=== PATIENT | male | born 1990 | race Caucasian/White ===

== ENCOUNTER 2019-11-01 15:22 | Emergency (ER) | payer OTHER ==
[~2019-11-01] VITALS: Ht 175.3 cm; Wt 68.0 kg
[2019-11-01] MEDS ORDERED: PROMETH-CODEIN 65 ML PO (16:34)
[2019-11-01] MEDS ORDERED: BACTRIM DS TAB1 EACH PO (16:34)
[2019-11-01 16:57] VITALS: BP 133/78
== END 2019-11-01 16:50 | disposition home or self-care (01) ==
LOC: ER 15:22
DX: L02.01 Cutaneous abscess of face (principal); F17.200 Nicotine dependence, unspecified, uncomplicated